=== PATIENT | female | born 1975 | race Caucasian/White ===

== ENCOUNTER 2017-01-23 11:05 | Emergency (ER) | payer MEDICAID ==
[~2017-01-23] VITALS: Ht 157.5 cm; Wt 74.0 kg
[~2017-01-23 11:05] MED LIST: BEN50 PO; PRED20TA PO; TRIA15CR55 TOP
[2017-01-23 11:07] VITALS: Ht 157.5 cm; Wt 74.0 kg
--- NOTE | 2017-01-23 13:22 | ERD ---
ER Documentation Chief Complaint Chief Complaint left breast pain, had us said has cyst HPI 41-year-old female otherwise healthy comes in with left breast pain that started 5 days ago. The patient states that she had a breast ultrasound done by her primary care doctor to follow-up on a mammogram and it was done on December 04, 2016. Patient's PCP is Dr. Levine, who advised to do a follow up breast ultrasound in 6 months. Patient has had a breast mass seen on the left, approximately 4 cm at the 2 o'clock position. There is also one at the 1 o' clock position on the right breast. At the time of the ultrasound was done the patient states that she was asymptomatic, but the pain started today. She has not had any fevers or chills, chest pain, shortness of breath, cough. ROS All systems reviewed and are negative except as per history of present illness. Medications Home Meds Active Scripts Ibuprofen* (Motrin*) 600 Mg Tab, 600 MG PO Q6, #30 TAB Prov:KADIE DELUNA PA-C 01/23/17 Triamcinolone Acetonide (Triamcinolone Acetonide) 0.1% - 15 Gm Cream.gm., 1 APPLIC TOP BID, #1 TUB Prov:GUILLE CASTELLON PA-C 11/29/15 Diphenhydramine Hcl* (Benadryl*) 50 Mg Cap, 50 MG PO Q6 Y for ITCHING, #20 CAP Prov:GUILLE CASTELLON PA-C 11/29/15 Prednisone* (Prednisone*) 20 Mg Tab, 40 MG PO DAILY for 4 Days, TAB Prov:GUILLE CASTELLON PA-C 11/29/15 Allergies Allergies: Coded Allergies: No Known Allergy (Unverified , 11/29/15) PMhx/Soc History of Surgery: Yes Anesthesia Reaction: No Hx Neurological Disorder: Yes (migraine headache) Hx Respiratory Disorders: No Hx Cardiac Disorders: No Hx Psychiatric Problems: No Hx Miscellaneous Medical Probl: No Hx Alcohol Use: No Hx Substance Use: No Hx Tobacco Use: No Smoking Status: Never smoker Physical Exam Vitals Vital Signs Date Time Temp Pulse Resp B/P Pulse Ox O2 Delivery O2 Flow Rate FiO2 01/23/17 16:18 98.3 76 18 130/73 99 Room Air 01/23/17 11:07 98.1 66 18 135/66 99 Physical Exam General: Well-developed, well-nourished. The patient appears in no acute distress. HEENT: Head is normocephalic, atraumatic. No scleral icterus. Neck: Supple. Nontender. Lungs: Clear to auscultation. Normal air movement. Heart: Regular rate and rhythm. S1 and S2 are normal. No murmurs, gallops, or rubs. Breasts: There is approximately 1.5 cm mobile finding patient at the 1 o'clock position of the right breast. There is a 3cm finding, no definite mass appreciated, it is tender to palpation, no skin changes or warmth, at the 2 o' clock position of the left breast. No other masses, no drainage. No erythema, no warmth. Abdomen: Soft, nontender, nondistended. Bowel sounds are normoactive. Extremities: No clubbing or cyanosis. Normal pulses. Moving extremities x 4. No weakness. Neurologic: Alert and oriented 3. No focal deficits. Skin: Normal turgor. No rash or lesions. Results 24 hrs DIAGNOSTIC IMAGING REPORT Patient: DAYNA GRIFFIN : 1975 Age: 41 Sex: F MR #: [id number] DOS: 01/23/17 0000 Ordering MD: KADIE DELUNA PA-C Location: [facility] Room/Bed: PROCEDURE: Bilateral breast ultrasound. CLINICAL INDICATION: Bilateral breast masses TECHNIQUE: Bilateral whole breast, 4 quadrant and retroareolar, and axillary sonography was performed. COMPARISON: None. FINDINGS: No solid or suspicious masses. No malignant adenopathy. Numerous simple cysts are present bilaterally, the largest in the left 2 o'clock position measuring 4.3 cm. The largest in the right breast measuring 1.3 cm. IMPRESSION: 1. No sonographic findings of malignancy. Bilateral simple cyst. 2. Recommend the patient return for routine annual screening mammogram unless there are new clinical findings in the interim. BI-RADS 2: BENIGN RPTAT: EE .Julienne Benites MD, Date Time Electronically viewed and signed by .Julienne Benites MD, MD on 01/23/2017 15:49 .M/ CC: KADIE DELUNA PA-C Procedures/MDM 41-year-old female comes in with bilateral breast cysts seen on ultrasound today. Patient will be copy given copies of the ultrasound, will be advised to follow-up with her primary care doctor to follow-up with them, and repeat ultrasound in 6 months. No findings for an abscess, mass, patient will be advised to recheck sooner if any new findings occur. Departure Diagnosis: Primary Impression: Breast pain Condition: Good KADIE DELUNA PA-C Jan 23, 2017 13:22
[2017-01-23] MEDS ORDERED: IBUP-1542 PO (14:26)
--- NOTE | 2017-01-23 15:49 | RADRPT ---
PROCEDURE: Bilateral breast ultrasound. CLINICAL INDICATION: Bilateral breast masses TECHNIQUE: Bilateral whole breast, 4 quadrant and retroareolar, and axillary sonography was perfor med. COMPARISON: None. FINDINGS: No solid or suspicious masses. No malignant adenopathy. Numerous simple cysts are present bilateral ly, the largest in the left 2 o'clock position measuring 4.3 cm. The largest in the right breast glen suring 1.3 cm. IMPRESSION: 1. No sonographic findings of malignancy. Bilateral simple cyst. 2. Recommend the patient return for routine annual screening mammogram unless there are new clinica l findings in the interim. BI-RADS 2: BENIGN RPTAT: EE .Julienne Benites MD, Date Time Electronically viewed and signed by .Julienne Benites MD, on 01/23/2017 15:49 .M/
[2017-01-23 16:18] VITALS: BP 130/73; PULSE 76; RESP 18; TEMP 98.3
== END 2017-01-23 16:16 | disposition home or self-care (01) ==
LOC: FTE 11:05
DX: N63.20 Unspecified lump in the left breast, unspecified quadrant (principal); N63.10 Unspecified lump in the right breast, unspecified quadrant
CPT/HCPCS: 76641

== ENCOUNTER 2018-08-26 18:33 | Emergency (ER) | payer MEDICAID ==
[~2018-08-26] VITALS: Ht 154.9 cm; Wt 68.1 kg
[~2018-08-26 18:33] MED LIST changes: +IBUP-1542 PO
[2018-08-26 18:37] VITALS: BP 107/56; PULSE 76; RESP 20; Ht 154.9 cm; Wt 68.1 kg
[2018-08-26] MEDS ORDERED: ACET500C5 PO (18:43)
[2018-08-26] MEDS ORDERED: ALBU18HF INHALATION (18:43)
[2018-08-26] MEDS ORDERED: AZIT250T PO (18:43)
[2018-08-26] MEDS ORDERED: PRED20TA PO (18:43)
--- NOTE | 2018-08-26 18:44 | ERD ---
ER Documentation Chief Complaint Chief Complaint DRY COUGH X3WKS ON/OFF; HEADACHE XTODAY HPI 43-year-old female presents with productive cough and possible wheeze for last few weeks. She has no history of asthma. She denies fevers, vomiting, abdominal pain, chest pain. ROS All systems reviewed and are negative except as per history of present illness. Medications Home Meds Active Scripts Acetaminophen* (Tylophen*) 500 Mg Capsule, 1 CAP PO Q6H PRN for PAIN AND OR ELEVATED TEMP, #15 CAP Prov:JA SARMIENTO MD 08/26/18 Prednisone* (Prednisone*) 20 Mg Tab, 40 MG PO DAILY for 4 Days, TAB Prov:JA SARMIENTO MD 08/26/18 Albuterol Sulfate* (Ventolin HFA*) 18 Gm Hfa.aer.ad, 2 PUFF INHALATION Q4H, #1 INHALER Prov:JA SARMIENTO MD 08/26/18 Azithromycin* (Zithromax*) 250 Mg Tablet, 250 MG PO .ZPACK DIRECTED, #6 TAB TAKE 500 MG (2 TABS) THE FIRST DAY THEN 250 MG (1 TAB) DAYS 2-5 Prov:JA SARMIENTO MD 08/26/18 Ibuprofen* (Motrin*) 600 Mg Tab, 600 MG PO Q6, #30 TAB Prov:KADIE DELUNA PA-C 01/23/17 Triamcinolone Acetonide (Triamcinolone Acetonide) 0.1% - 15 Gm Cream.gm., 1 APPLIC TOP BID, #1 TUB Prov:GUILLE CASTELLON PA-C 11/29/15 Diphenhydramine Hcl* (Benadryl*) 50 Mg Cap, 50 MG PO Q6 PRN for ITCHING, #20 CAP Prov:GUILLE CASTELLON PA-C 11/29/15 Prednisone* (Prednisone*) 20 Mg Tab, 40 MG PO DAILY for 4 Days, TAB Prov:GUILLE CASTELLON PA-C 11/29/15 Allergies Allergies: Coded Allergies: No Known Allergy (Unverified , 11/29/15) PMhx/Soc History of Surgery: Yes Anesthesia Reaction: No Hx Neurological Disorder: Yes (migraine headache) Hx Respiratory Disorders: No Hx Cardiac Disorders: No Hx Psychiatric Problems: No Hx Miscellaneous Medical Probl: No Hx Alcohol Use: No Hx Substance Use: No Hx Tobacco Use: No Smoking Status: Never smoker FmHx Family History: No diabetes, No coronary disease, No other Physical Exam Vitals Vital Signs Date Temp Pulse Resp B/P (MAP) Pulse Ox O2 O2 Flow FiO2 Time Delivery Rate 08/26/18 97.9 76 20 107/56 98 18:37 (73) Physical Exam Const: No acute distress Head: Atraumatic Eyes: Normal Conjunctiva ENT: Normal External Ears, Nose and Mouth. TMs normal. Postnasal drip. Neck: Full range of motion. No meningismus. Resp: Clear to auscultation bilaterally. Coarse cough with minimal wheeze. No significant wheeze at rest no rales or retractions. Cardio: Regular rate and rhythm, no murmurs Abd: Soft, non tender, non distended. Normal bowel sounds Skin: No petechiae or rashes Back: No midline or flank tenderness Ext: No cyanosis, or edema Neur: Awake and alert Psych: Normal Mood and Affect Procedures/MDM Patient presents with productive cough and wheezing for the last 3 weeks without signs of hypoxemia, rest distress, signs of pneumonia on exam.. Given the duration of symptoms we will treat empirically with Zithromax, short course of prednisone, Ventolin, recommendations for primary care follow-up and return precautions. The patient was stable with no new complaints during the ER course. Clinically, there is no current evidence to suggest meningitis, sepsis, acute abdomen, pneumonia, stroke, acute coronary syndrome, pulmonary embolism, aortic dissection or any other emergent condition appearing to require further evaluation or hospitalization. Patient counseled regarding my diagnostic impression and care plan. Prior to discharge all questions answered. Pt agrees with treatment plan and understands strict return precautions. Pt is instructed to follow up with primary care provider within 24-48 hours. Precautionary instructions provided including instructions to return to the ER if not improving or for any worsening or changing symptoms or concerns. Disclaimer: Inadvertent spelling and grammatical errors are likely due to EHR/dictation software use and do not reflect on the overall quality of patient care. Also, please note that the electronic time recorded on this note does not necessarily reflect the actual time of the patient encounter. Departure Diagnosis: Primary Impression: Wheeze Additional Impression: Cough Condition: Stable Patient Instructions: Bronchitis With Wheezing (Adult) Additional Instructions: Recheck for new or worsening symptoms with primary care doctor. JA SARMIENTO MD Aug 26, 2018 18:44
== END 2018-08-26 18:47 | disposition home or self-care (01) ==
LOC: E/R 18:33
DX: R06.2 Wheezing (principal)
CPT/HCPCS: 99283